=== PATIENT | female | born 1975 | race Caucasian/White ===

== ENCOUNTER 2017-03-01 17:40 | Emergency (ER) | payer BC ==
[2017-03-01] MEDS ORDERED: LORazepam 0.5 MG Tab PO ONE (17:50)
[2017-03-01 17:52] VITALS: BP 128/91
[2017-03-01] MEDS ORDERED: Levalbuterol HCl 1.25 MG/3 ML Neb NEB ONE (17:52)
--- NOTE | 2017-03-01 18:22 | EDM.PDOC ---
ED HPI GENERAL MEDICAL PROBLEM - General Chief Complaint: Respiratory Problem Stated Complaint: SOB Time Seen by Provider: 03/01/17 17:50 Source of Information: Reports: Patient, RN Notes Reviewed - History of Present Illness INITIAL COMMENTS - FREE TEXT/NARRATIVE: 42-year-old female comes in short of breath. He has had this off and on for the past few days but became much worse this afternoon. She states she was exposed to some type of long chemical 2 days ago and after that her difficulty with breathing started. She's never been diagnosed with asthma but believes that she might have some "borderline reactive airway disease". She has not been coughing any more than usual. No fever or sore throat. No major nasal or sinus drainage. She is not having any current chest discomfort. Of note she was hyperventilating on arrival to the ED. She did admit to "numbness and tingling all over" Chest Pain Score (Numeric/FACES): 6 - Related Data Allergies Allergy/AdvReac Type Severity Reaction Status Date / Time No Known Allergies Allergy Verified 03/01/17 17:56 Home Meds: Home Meds Levalbuterol Tartrate [Xopenex Hfa] 15 gm IH Q6HR PRN #1 [email or web address] 03/01/17 [Rx ] Prednisone [IJD: predniSONE] 40 mg PO WITHBREAKFAST #4 tab 03/01/17 [Rx] ED ROS GENERAL - Review of Systems Review Of Systems: See Below Constitutional: Denies: Fever, Chills, Diaphoresis HEENT: Denies: Sinus Problem, Throat Pain Respiratory: Reports: Shortness of Breath, Wheezing. Denies: Pleuritic Chest Pain, Cough Cardiovascular: Denies: Chest Pain GI/Abdominal: Denies: Abdominal Pain, Nausea, Vomiting Musculoskeletal: Denies: Neck Pain, Shoulder Pain, Back Pain Skin: Reports: No Symptoms Neurological: Reports: Numbness, Tingling ED EXAM, GENERAL - Physical Exam Exam: See Below General Appearance: Alert, Anxious, Moderate Distress Throat/Mouth: Normal Inspection, Normal Oropharynx Neck: Supple Respiratory/Chest: Respiratory Distress (Moderate tachypnea), Wheezing (Slight bilateral). No: Rales, Rhonchi Cardiovascular: Regular Rate, Rhythm Back Exam: No: CVA Tenderness (L), CVA Tenderness (R) Extremities: Normal Inspection, Normal Range of Motion. No: Leg Pain, Pallor, Redness Neurological: Alert, Oriented Skin Exam: Warm, Dry, Normal Color Course - Vital Signs Last Recorded V/S: Last Vital Signs Temp 97.9 F 03/01/17 17:50 Pulse 92 03/01/17 17:50 Resp 18 03/01/17 17:50 BP 128/91 H 03/01/17 17:50 Pulse Ox 100 03/01/17 18:05 - Orders/Labs/Meds Orders: Active Orders 24 hr Category Date Time Status RT Aerosol Therapy [RC] ASDIRECTED Care 03/01/17 17:52 Active Meds: Medications Discontinued Medications Generic Name Dose Route Start Last Admin Trade Name Freq PRN Reason Stop Dose Admin Levalbuterol HCl 1.25 mg 03/01/17 17:52 03/01/17 18:00 Xopenex NEB 03/01/17 17:53 1.25 mg ONETIME ONE Administration Lorazepam 0.25 mg 03/01/17 17:50 03/01/17 18:10 Ativan PO 03/01/17 17:51 0.25 mg ONETIME ONE Administration Prednisone 40 mg 03/01/17 18:42 03/01/17 18:59 Prednisone PO 03/01/17 18:43 40 mg ONETIME ONE Administration - Re-Assessments/Exams Free Text/Narrative Re-Assessment/Exam: 03/01/17 19:55 breathing, moving air more comfortably after Xopenex treatment, Xopenex ordered because she states she has extreme palpitations after albuterol inhaler or nebs. She also was given 0.25 mg lorazepam by mouth. Discharge instructions as documented Departure - Departure Time of Disposition: 19:43 Disposition: Home, Self-Care 01 Condition: Fair Clinical Impression: Reactive airway disease Qualifiers: Asthma severity: unspecified severity Asthma complication type: with acute exacerbation Qualified Code(s): J45.901 - Unspecified asthma with (acute) exacerbation - Discharge Information Prescriptions: Levalbuterol Tartrate [Xopenex Hfa] 15 gm IH Q6HR PRN #1 [email or web address] PRN Reason: Wheezing Prednisone [IJD: predniSONE] 40 mg PO WITHBREAKFAST #4 tab Instructions: Asthma, Acute Bronchospasm, Asthma Attack Prevention Referrals: PCP,Not In Area [Primary Care Provider] - Forms: ED Department Discharge, Return to Work/School Form Additional Instructions: Continue prednisone 40 mg daily every morning for the next 4 days, Xopenex rescue inhaler every 4-6 hours when necessary severe wheezing or difficulty breathing, follow-up clinic as needed, return to ED as needed - My Orders Last 24 Hours: My Active Orders 03/01/17 17:52 RT Aerosol Therapy [RC] ASDIRECTED - Assessment/Plan Last 24 Hours: My Active Orders 03/01/17 17:52 RT Aerosol Therapy [RC] ASDIRECTED
[2017-03-01] MEDS ORDERED: predniSONE 20 MG Tab PO ONE (18:42)
== END 2017-03-01 20:00 | disposition home or self-care (01) ==
LOC: JD.ED 17:40
DX: J45.901 Unspecified asthma with (acute) exacerbation (principal)
CPT/HCPCS: 94664; 99285; A9270; 99283

== ENCOUNTER 2017-03-09 19:24 | Emergency (ER) | payer OTHER ==
[2017-03-09 19:38] VITALS: BP 116/90
--- NOTE | 2017-03-09 19:49 | EDM.PDOC ---
ED HPI GENERAL MEDICAL PROBLEM - General Chief Complaint: Body Fluid Exposure Stated Complaint: NEEDLE STICK Time Seen by Provider: 03/09/17 19:31 Source of Information: Reports: Patient History Limitations: Reports: No Limitations - History of Present Illness INITIAL COMMENTS - FREE TEXT/NARRATIVE: Patient is a 42-year-old female presents ED after being stuck with a dirty needle in the right ring finger. Patient works at a local [employer] and was obtaining blood work. When discarding the needle the needle flip back accidentally sticking her in the right ring finger. The inmate to which blood work was being obtained from is hep C positive type IA. HIV is negative. Patient is here to have blood work obtained. 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 Social & Family History - Tobacco Use Smoking Status *Q: Never Smoker Second Hand Smoke Exposure: No - Caffeine Use Caffeine Use: Reports: Coffee - Recreational Drug Use Recreational Drug Use: No ED ROS GENERAL - Review of Systems Review Of Systems: See Below Constitutional: Reports: No Symptoms Musculoskeletal: Reports: No Symptoms Skin: Reports: Wound (puncture wound to the right ring finger) ED EXAM, GENERAL - Physical Exam Exam: See Below Exam Limited By: No Limitations General Appearance: Alert, WD/WN, No Apparent Distress Ears: Hearing Grossly Normal Nose: Normal Inspection Throat/Mouth: Normal Voice, No Airway Compromise Neck: Normal Inspection, Supple Respiratory/Chest: No Respiratory Distress, Lungs Clear, Normal Breath Sounds, No Accessory Muscle Use Cardiovascular: Normal Peripheral Pulses, Regular Rate, Rhythm Extremities: Other (Needle puncture to the distal aspect of the right ring finger. No concerning findings present. ) Neurological: Alert, Oriented, Normal Cognition Psychiatric: Normal Affect, Normal Mood Skin Exam: Warm, Dry, Intact, Normal Color, No Rash Course - Vital Signs Last Recorded V/S: Last Vital Signs Temp 97.5 F 03/09/17 19:32 Pulse 75 03/09/17 19:32 Resp 16 03/09/17 19:32 BP 116/90 03/09/17 19:32 Pulse Ox 97 03/09/17 19:32 - Orders/Labs/Meds Labs: Laboratory Tests 03/09/17 03/09/17 Range/Units 19:55 19:55 Hep Bs Antigen Nonreactive (NONREACTIVE) Hepatitis C Antibody Negative (NEGATIVE) HIV-1 Ab Rapid Screen Negative (NEGATIVE) - Re-Assessments/Exams Free Text/Narrative Re-Assessment/Exam: Ordered Hep B Surface AG, Hep C Antibody, and rapid HIV. Will have blood work obtained.She will be discharged home. Results of labs can be shared with patient via cell phone, per patient. Will discharge patient home with instructions as documented. 03/10/17 10:52 R labs were negative. I did contact the patient via cell phone and left a message for her to contact the ED for results. Departure - Departure Time of Disposition: 19:51 Disposition: Home, Self-Care 01 Condition: Good Clinical Impression: Needle stick injury of finger of right hand Qualifiers: Encounter type: initial encounter Qualified Code(s): S61.239A - Puncture wound without foreign body of unspecified finger without damage to nail, initial encounter - Discharge Information Instructions: Body Fluid Exposure Information, Needlestick Injury, [id number] Forms: ED Department Discharge, ED Return to Work/School Form Additional Instructions: You will be notified of results when available. Call back in 2 days if he had not heard about HIV. He will take a few days for the hepatitis C and B labs to be obtained. Follow-up with your primary care provider for further evaluation and treatment as needed. Return to the E.D. as needed.
== END 2017-03-09 20:00 | disposition home or self-care (01) ==
LOC: JD.ED 19:24
DX: S61.234A Puncture wound without foreign body of right ring finger without damage to nail, initial encounter (principal); E03.9 Hypothyroidism, unspecified; Z87.01 Personal history of pneumonia (recurrent); K21.9 Gastro-esophageal reflux disease without esophagitis; Z87.440 Personal history of urinary (tract) infections; Z90.49 Acquired absence of other specified parts of digestive tract; W26.8XXA Contact with other sharp object(s), not elsewhere classified, initial encounter
CPT/HCPCS: 36415; 86803; 87340; 87449; 99282; 99283

== ENCOUNTER 2017-09-05 05:18 | Emergency (ER) | payer BC ==
[2017-09-05 05:33] VITALS: BP 111/88
[2017-09-05] MEDS ORDERED: Sodium Chloride 0.9% 1,000 ML IV SCH (05:45)
[2017-09-05] MEDS ORDERED: HYDROmorphone 1 MG/ML Syringe IVPUSH ONE ×2 (06:39→08:01)
--- NOTE | 2017-09-05 06:41 | EDM.PDOC ---
ED HPI GENERAL MEDICAL PROBLEM - General Chief Complaint: Abdominal Pain Stated Complaint: [facility] Time Seen by Provider: 09/05/17 05:35 Source of Information: Reports: Patient History Limitations: Reports: Uncooperative (Yelling expletives) - History of Present Illness INITIAL COMMENTS - FREE TEXT/NARRATIVE: The patient states that she underwent a paraesophageal herniorrhaphy and gastric bypass on 08/11/2017 at [facility]. She states that she developed severe epigastric abdominal pain around 03:15 this morning, which spread to her general abdomen, and radiates to both her shoulders and her neck. She is unable to describe the pain other than "intense". The patient denies associated nausea, vomiting, diarrhea, urinary symptoms, or fever. She states that she has been constipated for about a week. No prior similar symptoms. The patient was given 1 mg Dilaudid and 4 mg Zofran per EMS, but told the nurses that it did nothing. The patient's PCP is Dr. Godoy. 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 , Musculoskeletal History: Reports: Fracture Neurological History: Reports: Concussion Psychiatric History: Reports: ADD Endocrine/Metabolic History: Reports: Hypothyroidism, Obesity/BMI 30+ - Infectious Disease History Infectious Disease History: Reports: Chicken Pox, Measles, Other (See Below) Other Infectious Disease History: "[place] measles." - Past Surgical History GI Surgical History: Reports: Bariatric Procedure (Gastric bypass, 08/11/2017), Cholecystectomy, Hernia, Abdominal (Paraesophageal, 08/11/2017) Female Surgical History: Reports: Tubal Ligation Social & Family History - Tobacco Use Smoking Status *Q: Never Smoker Second Hand Smoke Exposure: No - Caffeine Use Caffeine Use: Reports: Coffee - Alcohol Use Alcohol Use History: No - Recreational Drug Use Recreational Drug Use: No - Living Situation & Occupation Living situation: Reports: , with Spouse, with Family (2 kids) 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 ED EXAM, GI/ABD - Physical Exam Exam: See Below Exam Limited By: Uncooperative General Appearance: Alert, WD/WN, Moderate Distress (Yelling) Eyes: Bilateral: Normal Appearance, EOMI Ears: Normal External Exam, Hearing Grossly Normal Nose: Normal Inspection, No Blood Throat/Mouth: Normal Inspection, Normal Lips, Normal Voice, No Airway Compromise Head: Atraumatic, Normocephalic Neck: Normal Inspection, Full Range of Motion Respiratory/Chest: No Respiratory Distress, Lungs Clear, Normal Breath Sounds, No Accessory Muscle Use Cardiovascular: Normal Peripheral Pulses, Regular Rate, Rhythm, No Gallop, No JVD, No Murmur, No Rub GI/Abdominal Exam: Soft, No Organomegaly, No Distention, No Abnormal Bruit, No Mass, Tender (Generalized, non-focal), Other (Decreased, but not absent, bowel sounds) (Female) Exam: Deferred Rectal (Female) Exam: Deferred Back Exam: Other (Unable to inspect, as the patient will not sit up or roll over ) Extremities: Normal Inspection, Normal Range of Motion, No Pedal Edema, Normal Capillary Refill Neurological: Alert, Oriented, No Motor/Sensory Deficits Psychiatric: Anxious Skin Exam: Warm, Dry, Intact, Normal Color, No Rash Course - Vital Signs Last Recorded V/S: Last Vital Signs Temp 35.8 C 09/05/17 05:21 Pulse 79 09/05/17 05:21 Resp 18 09/05/17 05:21 BP 111/88 09/05/17 05:21 Pulse Ox 91 L 09/05/17 05:21 - Orders/Labs/Meds Orders: Active Orders 24 hr Category Date Time Status Abdomen Pelvis w Cont [CT] Stat Exams 09/05/17 05:36 Stop Req Chest Abdomen Pelvis w Cont [CT] Stat Exams 09/05/17 06:41 Taken HCG QUALITATIVE,URINE [URCHEM] Stat Lab 09/05/17 05:36 Uncollected UA W/MICROSCOPIC [URIN] Stat Lab 09/05/17 05:36 Uncollected Sodium Chloride 0.9% [Normal Saline] 1,000 ml Med 09/05/17 05:45 Active IV ASDIRECTED Medication Orders Sodium Chloride (Normal Saline) 1,000 mls @ 150 mls/hr IV ASDIRECTED NEIL Last Admin: 09/05/17 06:02 Dose: 150 mls/hr Labs: Laboratory Tests 09/05/17 09/05/17 Range/Units 06:20 06:20 WBC 10.05 H (3.98-10.04) K/mm3 RBC 4.80 (3.98-5.22) M/mm3 Hgb 14.8 (11.2-15.7) gm/L Hct 44.7 (34.1-44.9) % MCV 93.1 (79.4-94.8) fl MCH 30.8 (25.6-32.2) pg MCHC 33.1 (32.2-35.5) g/dl RDW Std Deviation 46.1 (36.4-46.3) fL Plt Count 269 (182-369) K/mm3 MPV 10.2 (9.4-12.3) fl Neutrophils % (Manual) 88 H (40-60) % Band Neutrophils % 0 (0-10) % Lymphocytes % (Manual) 10 L (20-40) % Atypical Lymphs % 0 % Monocytes % (Manual) 2 (2-10) % Eosinophils % (Manual) 0 L (0.7-5.8) % Basophils % (Manual) 0 L (0.1-1.2) Toxic Granulation 1+ slight Platelet Estimate Adequate Plt Morphology Comment Normal RBC Morph Comment Normal Sodium 143 (136-145) mEq/L Potassium 3.6 (3.5-5.1) mEq/L Chloride 108 H (98-107) mEq/L Carbon Dioxide 22 (21-32) mEq/L Anion Gap 16.6 H (5-15) BUN 18 (7-18) mg/dL Creatinine 0.9 (0.55-1.02) mg/dL Est Cr Clr Drug Dosing 80.47 mL/min Estimated GFR (MDRD) > 60 (>60) mL/min BUN/Creatinine Ratio 20.0 H (14-18) Glucose 137 H (74-106) mg/dL Calcium 8.8 (8.5-10.1) mg/dL Total Bilirubin 0.6 (0.2-1.0) mg/dL AST 16 (15-37) U/L ALT 26 (14-59) U/L Alkaline Phosphatase 79 (46-116) U/L Total Protein 7.2 (6.4-8.2) g/dl Albumin 3.6 (3.4-5.0) g/dl Globulin 3.6 gm/dL Albumin/Globulin Ratio 1.0 (1-2) Lipase 149 (73-393) U/L Meds: Medications Generic Name Dose Route Start Last Admin Trade Name Freq PRN Reason Stop Dose Admin Sodium Chloride 1,000 mls @ 150 mls/hr 09/05/17 05:45 09/05/17 06:02 Normal Saline IV 150 mls/hr ASDIRECTED NEIL Administration Discontinued Medications Generic Name Dose Route Start Last Admin Trade Name Freq PRN Reason Stop Dose Admin Hydromorphone HCl 1 mg 09/05/17 06:39 09/05/17 06:41 Dilaudid IVPUSH 09/05/17 06:40 1 mg ONETIME ONE Administration Hydromorphone HCl Confirm 09/05/17 06:44 Dilaudid Administered 09/05/17 06:45 Dose 1 mg .ROUTE .STK-MED ONE Hydromorphone HCl 1 mg 09/05/17 08:01 09/05/17 08:08 Dilaudid IVPUSH 09/05/17 08:02 1 mg ONETIME ONE Administration Iopamidol 150 ml 09/05/17 07:06 09/05/17 07:20 Isovue-300 (61%) IVPUSH 09/05/17 07:07 150 ml ONETIME ONE Administration - Re-Assessments/Exams Free Text/Narrative Re-Assessment/Exam: 09/05/17 06:53 The patient initially refused all testing, including blood work, until she received something for pain. She refuses to drink the oral contrast, however, with a complaint of the pain going to her shoulders and neck, I have changed the initial order of a CT scan of the abdomen and pelvis with oral and IV contrast to a CT scan of the chest, abdomen, and pelvis with IV contrast. IV Dilaudid was ordered. 09/05/17 07:50 Notified by the [facility] that the CT scan is demonstrating what appears to be dehiscence of the surgical incisions along the stomach, as there is more intra-abdominal free air than expected, with associated inflammation. There is also a small amount of pneumomediastinum, likely extravasated from the abdomen. 09/05/17 07:53 CT of the chest with IV contrast is read by [facility] as: - Small amount of pneumomediastinum inferior to the heart and around the GE junction, this is likely due to extension of free air from the abdomen. - Dependent atelectasis in the lungs bilaterally. - Incidental/non-acute findings are described above. CT of the abdomen and pelvis with IV contrast is read by [facility] as: - The patient has had a previous gastric bypass surgery. Findings suspicious for dehiscence of the surgical sutures in the stomach with free intraperitoneal air and inflammation in the abdomen. - Probable degenerating cyst in the LEFT ovary. - Incidental/non-acute findings are described above. 09/05/17 08:[address] Martinez, bariatric surgeon guest relations executive at [facility], at 07:53. He would like us to transfer the patient to their ED. I do not need to speak to the EDP. I have pushed the CT images to their facility. The patient will be transferred by fixed wing, as [place] is too far to go by ground. The above was discussed with the patient, who is agreeable to transfer. Departure - Departure Time of Disposition: 08:06 Disposition: DC/Tfer to Acute Hospital 02 Condition: Fair Clinical Impression: Dehiscence of closure of internal organ - Discharge Information Referrals: PCP,Not In Area [Primary Care Provider] - - My Orders Last 24 Hours: My Active Orders 09/05/17 05:36 Abdomen Pelvis w Cont [CT] Stat HCG QUALITATIVE,URINE [URCHEM] Stat UA W/MICROSCOPIC [URIN] Stat 09/05/17 05:45 Sodium Chloride 0.9% [Normal Saline] 1,000 ml IV ASDIRECTED 09/05/17 06:41 Chest Abdomen Pelvis w Cont [CT] Stat - Assessment/Plan Last 24 Hours: My Active Orders 09/05/17 05:36 Abdomen Pelvis w Cont [CT] Stat HCG QUALITATIVE,URINE [URCHEM] Stat UA W/MICROSCOPIC [URIN] Stat 09/05/17 05:45 Sodium Chloride 0.9% [Normal Saline] 1,000 ml IV ASDIRECTED 09/05/17 06:41 Chest Abdomen Pelvis w Cont [CT] Stat
[2017-09-05] MEDS ORDERED: HYDROmorphone 1 MG/ML Syringe ONE (06:44)
[2017-09-05] MEDS ORDERED: Iopamidol 612 MG/ML 150 ML Bottle IVPUSH ONE (07:06)
--- NOTE | 2017-09-05 13:41 | CT ---
CT chest Technique: Multiple axial sections through the chest were obtained. Intravenous contrast was utilized. Comparison: No prior chest imaging. Findings: Mediastinum and hilar regions show no adenopathy or mass. No pericardial thickening is seen. Small amount of mediastinal air is seen within the lower chest next to the gastroesophageal junction. No axillary adenopathy is seen. Mild increased density within both lung bases most likely due to atelectasis. Lungs otherwise are clear. Bone window settings were reviewed which appear within normal limits for the patient's age. Impression: 1. Small amount of mediastinal air next to the gastroesophageal junction most likely representing extension of free air from the abdomen. 2. Mild bibasilar atelectasis. 3. No additional abnormality is identified. Diagnostic code #3 Agree with preliminary report issued by [employer] ([facility] [employer] preliminary report dictated on 09/05/17, 8:51 AM Central Time) CT abdomen and pelvis Technique: Multiple axial sections were obtained from above the dome of the diaphragm inferiorly through the pubic symphysis. Intravenous contrast was utilized. No oral contrast has been given which diminishes sensitivity for bowel abnormalities. Comparison: No previous study. Findings: Free air is identified within the upper abdomen. There is some focal air being seen around the stomach in area of previous surgery. This air makes etiology of free air most likely from dehiscence of anastomotic sutures in the area of the stomach. Small amount of free fluid is seen around the liver as well as more confluent free fluid seen within the pelvis. No focal abnormality is identified within the liver. Spleen appears within normal limits. Surgical clips are seen from previous cholecystectomy. Adrenal glands show no nodule. Pancreas appears within normal limits. Aorta shows no aneurysmal dilatation. No retroperitoneal adenopathy or mesenteric abnormalities are otherwise seen. No pelvic mass or adenopathy is seen. Bone window settings were reviewed which show severe disc space narrowing at L4-L5 with vacuum phenomena. Lesser disc space narrowing at L3-L4 and posteriorly at L4-L5. Degenerative apophyseal change is seen within the lower lumbar spine. Impression: 1. Previous stomach surgery. Air noted around anastomotic sutures within the stomach likely represents dehiscence of the surgical anastomotic sutures. Free air is seen within the upper abdomen. 2. Small amount of free fluid around the liver as well as more free confluent fluid within the pelvis. 3. Other incidental findings as noted above. Diagnostic code #5 Agree with preliminary report issued by [facility] ([facility] preliminary report dictated on 09/05/17, 8:51 AM Central Time)
== END 2017-09-05 08:55 ==
LOC: JD.ED 05:18
DX: T81.32XA Disruption of internal operation (surgical) wound, not elsewhere classified, initial encounter (principal); E03.9 Hypothyroidism, unspecified; Z98.890 Other specified postprocedural states; Z98.84 Bariatric surgery status; Z79.899 Other long term (current) drug therapy
CPT/HCPCS: 36415; 51702; 71260; 74177; 80053; 81001; 81025; 83690; 85025; 96361; 96374; 96376; 99285; J1170; J7040; Q9967; 99284

== ENCOUNTER 2017-11-09 13:14 | Emergency (ER) | payer BC ==
[2017-11-09 13:42] VITALS: BP 132/79
[2017-11-09] MEDS ORDERED: Dextrose 5%-0.9% NaCl 1,000 ML IV SCH (13:45)
[2017-11-09] MEDS ORDERED: Acetaminophen 325 MG Tab PO ONE (13:47)
[2017-11-09] MEDS ORDERED: Ondansetron 4 MG/2 ML SDV IVPUSH ONE (13:47)
[2017-11-09] MEDS ORDERED: Levofloxacin/Dextrose 5%-Water 750 MG in Premix Bag 1 BAG IV ONE (13:48)
--- NOTE | 2017-11-09 13:49 | EDM.PDOC ---
ED HPI GENERAL MEDICAL PROBLEM - General Chief Complaint: Fever Stated Complaint: HIGH FEVER Time Seen by Provider: 11/09/17 13:43 Source of Information: Reports: Patient History Limitations: Reports: No Limitations - History of Present Illness INITIAL COMMENTS - FREE TEXT/NARRATIVE: 42-year-old female brought to the ED by her friend with fever of 103.6. She's had associated rigors and chills over the weekend. She reports she had mild dysuria with some urgency last Thursday which was November 02. By was getting worse and she therefore started on Bactrim double strength twice a day after urine dip showed positive nitrates and positive leukocyte esterase. 2 days later her dip remained positive suggesting that the bacteria was not susceptible to Bactrim double strength. Urine culture was not obtained. Now she presents with bilateral backache fever chills nausea and anorexia. She aches all over. 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 She cannot take NSAIDs. Still has mild dysuria at times. Onset: Gradual Onset Date: 11/09/17 Duration: Day(s): Location: Reports: Generalized Quality: Reports: Ache Severity: Severe Improves with: Reports: Medication Worsens with: Reports: None Context: Denies: Activity, Exercise, Lifting, Sick Contact, Trauma, Other Associated Symptoms: Reports: Fever/Chills, Loss of Appetite, Malaise, Nausea/ Vomiting. 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 Upper Abdominal Pain Score (Numeric/FACES): 9 - Related Data Allergies Allergy/AdvReac Type Severity Reaction Status Date / Time No Known Allergies Allergy Verified 11/09/17 13:27 Home Meds: Home Meds Levothyroxine Sodium [Synthroid] 75 mcg PO DAILY 09/05/17 [History] Amphetamine/Dextroamphetamine [Adderall] 20 mg PO DAILY 11/09/17 [History] FLUoxetine HCl [Fluoxetine HCl] 40 mg PO DAILY 11/09/17 [History] Levofloxacin [Levaquin] 500 mg PO DAILY #9 tab 11/09/17 [Rx] Omeprazole Magnesium [Prilosec Otc] 20 mg PO DAILY 11/09/17 [History] Sulfamethoxazole/Trimethoprim [Bactrim Ds Tablet] 1 each PO BID 11/09/17 [ History] Past Medical History HEENT History: Reports: Impaired Vision Other HEENT History: wears eyeglasses Cardiovascular History: Reports: Heart Murmur Respiratory History: Reports: Pneumonia, Recurrent, Other (See Below) Other Respiratory History: 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: Reports: Ectopic , Musculoskeletal History: Reports: Fracture Neurological History: Reports: Concussion Psychiatric History: Reports: ADD Endocrine/Metabolic History: Reports: Hypothyroidism, Obesity/BMI 30+ - Infectious Disease History Infectious Disease History: Reports: Chicken Pox, Measles, Other (See Below) Other Infectious Disease History: "[place] measles." - Past Surgical History GI Surgical History: Reports: Bariatric Procedure (Gastric bypass, 08/11/2017), Cholecystectomy, Hernia, Abdominal (Paraesophageal, 08/11/2017) Female Surgical History: Reports: Tubal Ligation Social & Family History - Tobacco Use Smoking Status *Q: Never Smoker Second Hand Smoke Exposure: No - Caffeine Use Caffeine Use: Reports: Coffee - Recreational Drug Use Recreational Drug Use: No - Living Situation & Occupation Living situation: Reports: , with Spouse, with Family (2 kids) 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 Denies: Black Stool, Diarrhea, Decreased Appetite, Distension, Flatus, Hematemesis, Hematochezia, Melena : Reports: Dysuria, Flank Pain Musculoskeletal: Reports: Muscle Pain (generalized myalgia.) Skin: Reports: No Symptoms Neurological: Reports: No Symptoms Psychiatric: Reports: No Symptoms Hematologic/Lymphatic: Reports: No Symptoms Immunologic: Reports: No Symptoms ED EXAM, RENAL/ - Physical Exam Exam: See Below Exam Limited By: No Limitations General Appearance: Alert, WD/WN, No Apparent Distress, Moderate Distress Throat/Mouth: Normal Inspection, Normal Lips, Normal Teeth, Normal Gums, Normal Oropharynx, Normal Voice, Other (no obvious Lt submandibular sialitis.) Neck: Normal Inspection, Supple, Non-Tender, Full Range of Motion, Lymphadenopathy (L) (mild) Respiratory/Chest: No Respiratory Distress, Lungs Clear, Normal Breath Sounds, No Accessory Muscle Use Cardiovascular: Normal Peripheral Pulses, Regular Rate, Rhythm, No Edema, No Gallop, No Murmur GI/Abdominal: Normal Bowel Sounds, Soft, Non-Tender, No Organomegaly, No Abnormal Bruit, No Mass, Pelvis Stable, Tender (both upper quadrants of the abdomen) Back Exam: CVA Tenderness (L), CVA Tenderness (R) Extremities: Normal Inspection, Normal Range of Motion, Non-Tender, No Pedal Edema Neurological: Alert, Oriented, CN II-XII Intact, Normal Cognition, Normal Gait Psychiatric: Normal Affect, Normal Mood Skin Exam: Warm, Dry, Intact, Normal Color, No Rash Course - Vital Signs Last Recorded V/S: Last Vital Signs Temp 37.7 C 11/09/17 14:14 Pulse 90 11/09/17 13:34 Resp 16 11/09/17 13:34 BP 132/79 11/09/17 13:34 Pulse Ox 98 11/09/17 13:34 - Orders/Labs/Meds Orders: Active Orders 24 hr Category Date Time Status CULTURE BLOOD [BC] Stat Lab 11/09/17 14:15 Received CULTURE BLOOD [BC] Stat Lab 11/09/17 14:30 Received CULTURE URINE [RM] Stat Lab 11/09/17 14:01 Received Dextrose 5%-0.9% NaCl [Dextrose 5%-Normal Saline] 1,000 Med 11/09/17 13:45 Active ml IV ASDIRECTED Blood Culture x2 Reflex Set [OM.PC] Stat Oth 11/09/17 13:45 Ordered Medication Orders Dextrose/Sodium Chloride (Dextrose 5%-Normal Saline) 1,000 mls @ 999 mls/hr IV ASDIRECTED NEIL Last Admin: 11/09/17 14:17 Dose: 999 mls/hr Labs: Laboratory Tests 11/09/17 11/09/17 11/09/17 Range/Units 14:00 14:00 14:00 WBC 6.55 (3.98-10.04) K/mm3 RBC 4.39 (3.98-5.22) M/mm3 Hgb 13.6 (11.2-15.7) gm/L Hct 40.9 (34.1-44.9) % MCV 93.2 (79.4-94.8) fl MCH 31.0 (25.6-32.2) pg MCHC 33.3 (32.2-35.5) g/dl RDW Std Deviation 48.9 H (36.4-46.3) fL Plt Count 239 (182-369) K/mm3 MPV 10.3 (9.4-12.3) fl Neutrophils % (Manual) 78 H (40-60) % Band Neutrophils % 3 (0-10) % Lymphocytes % (Manual) 13 L (20-40) % Atypical Lymphs % 0 % Monocytes % (Manual) 5 (2-10) % Eosinophils % (Manual) 1 (0.7-5.8) % Basophils % (Manual) 0 L (0.1-1.2) Platelet Estimate Adequate RBC Morph Comment Normal ESR 33 H (0-20) mm/hr Sodium 135 L (136-145) mEq/L Potassium 3.3 L (3.5-5.1) mEq/L Chloride 102 (98-107) mEq/L Carbon Dioxide 24 (21-32) mEq/L Anion Gap 12.3 (5-15) BUN 6 L (7-18) mg/dL Creatinine 0.9 (0.55-1.02) mg/dL Est Cr Clr Drug Dosing 80.47 mL/min Estimated GFR (MDRD) > 60 (>60) mL/min BUN/Creatinine Ratio 6.7 L (14-18) Glucose 126 H (74-106) mg/dL Lactic Acid (0.4-2.0) mmol/L Calcium 8.2 L (8.5-10.1) mg/dL Magnesium 1.9 (1.8-2.4) mg/dl Total Bilirubin 0.4 (0.2-1.0) mg/dL AST 24 (15-37) U/L ALT 28 (14-59) U/L Alkaline Phosphatase 99 (46-116) U/L C-Reactive Protein 7.9 H* (<1.0) mg/dL Total Protein 7.6 (6.4-8.2) g/dl Albumin 3.5 (3.4-5.0) g/dl Globulin 4.1 gm/dL Albumin/Globulin Ratio 0.9 L (1-2) Urine Color (Yellow) Urine Appearance (Clear) Urine pH (5.0-8.0) Ur Specific [place] (1.005-1.030) Urine Protein (Negative) Urine Glucose (UA) (Negative) Urine Ketones (Negative) Urine Occult Blood (Negative) Urine Nitrite (Negative) Urine Bilirubin (Negative) Urine Urobilinogen (0.2-1.0) Ur Leukocyte Esterase (Negative) Urine RBC (0-5) /hpf Urine WBC (0-5) /hpf Ur Epithelial Cells (0-5) /hpf Urine Bacteria (FEW) /hpf Urine Mucus (FEW) /hpf 11/09/17 11/09/17 Range/Units 14:00 14:15 WBC (3.98-10.04) K/mm3 RBC (3.98-5.22) M/mm3 Hgb (11.2-15.7) gm/L Hct (34.1-44.9) % MCV (79.4-94.8) fl MCH (25.6-32.2) pg MCHC (32.2-35.5) g/dl RDW Std Deviation (36.4-46.3) fL Plt Count (182-369) K/mm3 MPV (9.4-12.3) fl Neutrophils % (Manual) (40-60) % Band Neutrophils % (0-10) % Lymphocytes % (Manual) (20-40) % Atypical Lymphs % % Monocytes % (Manual) (2-10) % Eosinophils % (Manual) (0.7-5.8) % Basophils % (Manual) (0.1-1.2) Platelet Estimate RBC Morph Comment ESR (0-20) mm/hr Sodium (136-145) mEq/L Potassium (3.5-5.1) mEq/L Chloride (98-107) mEq/L Carbon Dioxide (21-32) mEq/L Anion Gap (5-15) BUN (7-18) mg/dL Creatinine (0.55-1.02) mg/dL Est Cr Clr Drug Dosing mL/min Estimated GFR (MDRD) (>60) mL/min BUN/Creatinine Ratio (14-18) Glucose (74-106) mg/dL Lactic Acid 2.4 H (0.4-2.0) mmol/L Calcium (8.5-10.1) mg/dL Magnesium (1.8-2.4) mg/dl Total Bilirubin (0.2-1.0) mg/dL AST (15-37) U/L ALT (14-59) U/L Alkaline Phosphatase (46-116) U/L C-Reactive Protein (<1.0) mg/dL Total Protein (6.4-8.2) g/dl Albumin (3.4-5.0) g/dl Globulin gm/dL Albumin/Globulin Ratio (1-2) Urine Color Yellow (Yellow) Urine Appearance Slt cloudy H (Clear) Urine pH 6.0 (5.0-8.0) Ur Specific [place] 1.020 (1.005-1.030) Urine Protein 1+ H (Negative) Urine Glucose (UA) Negative (Negative) Urine Ketones Negative (Negative) Urine Occult Blood Trace-intact H (Negative) Urine Nitrite Positive H (Negative) Urine Bilirubin Negative (Negative) Urine Urobilinogen 0.2 (0.2-1.0) Ur Leukocyte Esterase 2+ H (Negative) Urine RBC 5-10 H (0-5) /hpf Urine WBC 50-75 H (0-5) /hpf Ur Epithelial Cells 5-10 H (0-5) /hpf Urine Bacteria Many H (FEW) /hpf Urine Mucus Few (FEW) /hpf Meds: Medications Generic Name Dose Route Start Last Admin Trade Name Dkq PRN Reason Stop Dose Admin Dextrose/Sodium Chloride 1,000 mls @ 999 mls/hr 11/09/17 13:45 11/09/17 14:17 Dextrose 5%-Normal Saline IV 999 mls/hr ASDIRECTED NEIL Administration Discontinued Medications Generic Name Dose Route Start Last Admin Trade Name Freq PRN Reason Stop Dose Admin Acetaminophen 975 mg 11/09/17 13:47 11/09/17 14:14 Tylenol PO 11/09/17 13:48 975 mg NOW ONE Administration Levofloxacin/Dextrose 750 mg/ 150 mls @ 100 mls/hr 11/09/17 13:48 11/09/17 14 :20 Premix IV 11/09/17 15:17 100 mls/hr ONETIME ONE Administration Levofloxacin/Dextrose Confirm 11/09/17 14:13 11/09/17 14:15 Levaquin In D5w 750 Mg/150 Ml Administered 11/09/17 14:14 Not Given Dose 150 mls @ as directed IV .STK-MED ONE Ondansetron HCl 4 mg 11/09/17 13:47 11/09/17 14:15 Zofran IVPUSH 11/09/17 13:48 4 mg ONETIME ONE Administration - Radiology Interpretation Free Text/Narrative:: 42-year-old female presents to the ED with fever chills riders and bilateral back pain with generalized myalgia. Patient has associated anorexia without vomiting. Patient started having dysuria with some mild urgency and frequency one week ago. 3 days later she had a positive dip on her urine and was started on Bactrim double strength twice daily. She's been on the medication for 4 days and she continues to worsen. On examination she has bilateral costovertebral angle tenderness with fever and chills highly suggestive of bilateral pyelonephritis. Plan septic workup will be done including lactic acid urinalysis urine culture. Urine culture may not grow anything due to being on Bactrim but appears that she has a resistant organism. Patient has been on high- dose Flagyl and Rocephin due to dehiscence of her gastric bypass wound over the last 2 months. This may have created a antibiotic resistant organism. Plan will be Levaquin 750 mg IV as soon as blood cultures 2 are done. Tylenol 975 mg by mouth. This is for fever relief Zofran 4 mg IV for nausea relief. - Re-Assessments/Exams Free Text/Narrative Re-Assessment/Exam: 11/09/17 14:51 Labs are back revealing a normal white count at 6.55 with 70% neutrophils and 3% bands however. Hemoglobin is 13.6 with hematocrit of 40.9. Will count is normal at 10 39,000. Sodium is slightly low at 135 as is the potassium slightly low at 3.3. Chloride 102 bicarbonate is 24. And a gap is normal at 12.3. BUN is 6 with a creatinine of 0.9. Glucose is 126. Calcium is 8.2. Magnesium is normal at 1.9. Liver function is normal. C-reactive protein is elevated at 7.9. 11/09/17 15:10 Urinalysis is now back. It reveals 1+ protein and trace occult blood positive nitrates 2+ leukocyte esterase 5-10 RBCs 50-75 WBCs per power field and 5-10 epithelial cells with many bacteria reported. Urine culture has been ordered. Departure - Departure Time of Disposition: 16:00 Disposition: Home, Self-Care 01 Condition: Fair Clinical Impression: Pyelonephritis - Discharge Information Prescriptions: Levofloxacin [Levaquin] 500 mg PO DAILY #9 tab Instructions: Pyelonephritis, Adult Referrals: PCP,Not In Area [Primary Care Provider] - Forms: ED Department Discharge Additional Instructions: Evaluation in the emergency him today in regards to development of high fever, chills ,loss of appetite and generalized aches and pains over the weekend which appears to be secondary to worsening urinary tract infection which appears to be resistant to current antibiotic Bactrim strength she will been on for the last 4 days. White count today was 6.55 with a differential is 76% neutrophils and 3% bands still's suggesting that there is an underlying infective process. Also cystoscopy loaded with bacteria and pus cells. A culture was ordered although it may not grow anything due to the fact that you are on the Bactrim at present. You are treated in the emergency room with intravenous Levaquin 750 mg which should start to work within a few hours. He should start to feel better within 24-36 hours in terms of fever relief headache relief and body ache relief and return of appetite. You need to take Levaquin 500 mg tablet once daily for another 9 days starting about noon tomorrow. Continue Tylenol 1 g every 64 hours as needed for fever relief. If not markedly improved in 36-48 hours you need to return to the ED. - My Orders Last 24 Hours: My Active Orders 11/09/17 13:45 Dextrose 5%-0.9% NaCl [Dextrose 5%-Normal Saline] 1,000 ml IV ASDIRECTED Blood Culture x2 Reflex Set [OM.PC] Stat 11/09/17 14:01 CULTURE URINE [RM] Stat 11/09/17 14:15 CULTURE BLOOD [BC] Stat 11/09/17 14:30 CULTURE BLOOD [BC] Stat - Assessment/Plan Last 24 Hours: My Active Orders 11/09/17 13:45 Dextrose 5%-0.9% NaCl [Dextrose 5%-Normal Saline] 1,000 ml IV ASDIRECTED Blood Culture x2 Reflex Set [OM.PC] Stat 11/09/17 14:01 CULTURE URINE [RM] Stat 11/09/17 14:15 CULTURE BLOOD [BC] Stat 11/09/17 14:30 CULTURE BLOOD [BC] Stat
[2017-11-09] MEDS ORDERED: Levofloxacin/Dextrose 5%-Water 150 ML IV ONE (14:13)
== END 2017-11-09 16:04 | disposition home or self-care (01) ==
LOC: JD.ED 13:14
DX: N12 Tubulo-interstitial nephritis, not specified as acute or chronic (principal); E03.9 Hypothyroidism, unspecified; Z79.899 Other long term (current) drug therapy
CPT/HCPCS: 36415; 80053; 81001; 83605; 83735; 85025; 85652; 86140; 87040; 87086; 87088; 87186; 96365; 96366; 96375; 99284; A9270; J1956; J2405; J7042